=== PATIENT | male | born 1965 | race Caucasian/White ===

== ENCOUNTER → 2016-10-16 | Outpatient (CLI) | payer OTHER ==
[~2016-10-16] VITALS: Ht 170.2 cm; Wt 117.0 kg
[~2016-10-16] MED LIST: ASCORBIC ACID500 M3 PO; ASPIR 8181 M1 PO; FLONASE ALLERG9.9 ML BOTH NARES; MULTIPLE VITAM1 EACH PO; NORVASC10 MG PO
== END | disposition home or self-care (01) ==
LOC: AMB 08:28
PROC: 0DBH8ZX Excision of Cecum, Via Natural or Artificial Opening Endoscopic, Diagnostic (ICD-10-PCS; principal; 2016-10-16)
DX: Z12.11 Encounter for screening for malignant neoplasm of colon (principal); D12.0 Benign neoplasm of cecum; K64.8 Other hemorrhoids; I10 Essential (primary) hypertension; F17.200 Nicotine dependence, unspecified, uncomplicated; E78.5 Hyperlipidemia, unspecified; R73.9 Hyperglycemia, unspecified
CPT/HCPCS: 88305; 93005; J2250; J3010

== ENCOUNTER 2017-01-11 21:32 | Emergency (ER) | payer OTHER ==
[~2017-01-11] VITALS: Ht 172.7 cm; Wt 113.6 kg
[2017-01-12 00:02] LABS: HEMATOCRIT 43.6 % (38.0-50.0); MCH 29.5 PG (29.0-34.0); MCHC 34.6 G/DL (30.0-36.0); MCV 85.3 FL (86-99); MEAN PLAT.VOLUME 10.2 uM^3 (9.0-12.4); PLATELET COUNT 222 K/uL (156-360); RBC DIS.WIDTH-CV 12.3 % (11.8-14.6); RBC DIS.WIDTH-SD 38.5 % (39-53); RED BLOOD COUNT 5.11 M/uL (4.00-5.50); WHITE BLOOD COUNT 15.7 K/uL (4.1-10.2)
[2017-01-12] MEDS ORDERED: NORCO 5/3251 TABLET PO (00:07)
[2017-01-12 00:10] LABS: CHLORIDE 110 mEq/L (99-109); POTASSIUM 3.6 mEq/L (3.7-5.4); SODIUM 138 mEq/L (136-147)
[2017-01-12 00:11] LABS: GLUCOSE 116 mg/dL (70-99)
[2017-01-12 00:13] LABS: ANION GAP 8 MEQ/L (2-14)
[2017-01-12 00:15] LABS: GFR ESTIMATE (CALCULATED) > 59 mL/min/
[2017-01-12 00:16] LABS: UREA NITROGEN (BUN) 13 mg/dL (9-23)
[2017-01-12 00:57] VITALS: BP 132/81
== END 2017-01-12 00:59 | disposition home or self-care (01) ==
LOC: EME 21:32
PROVIDERS: Orthopaedic Surgery Sports Medicine
DX: S82.841A Displaced bimalleolar fracture of right lower leg, initial encounter for closed fracture (principal); W01.0XXA Fall on same level from slipping, tripping and stumbling without subsequent striking against object, initial encounter; K21.9 Gastro-esophageal reflux disease without esophagitis; I10 Essential (primary) hypertension; G47.30 Sleep apnea, unspecified; Z87.442 Personal history of urinary calculi; F17.210 Nicotine dependence, cigarettes, uncomplicated
CPT/HCPCS: 73610; 80048; 85027; 93005; 99281; 99285; J2270; J2405